=== PATIENT | male | born 1955 | race Caucasian/White ===

== ENCOUNTER 2022-10-25 10:58 | Day surgery (SDC) | payer MEDICARE, BC ==
[~2022-10-25] VITALS: Ht 198.1 cm; Wt 104.6 kg
[2022-10-25] MEDS ORDERED: normal saline 1000ml 1,000 ML IV PRN (11:20)
[2022-10-25 11:30] VITALS: BP 130/81
[2022-10-25] MEDS ORDERED: DICL-212 PO (11:30)
[2022-10-25] MEDS ORDERED: SAW450CA7 PO (11:30)
[2022-10-25] MEDS ORDERED: ASCO500W7 PO (11:30)
[2022-10-25] MEDS ORDERED: ZINC25CA PO (11:30)
[2022-10-25] MEDS ORDERED: normal saline 1000ml 1,000 ML IV SCH (14:05)
[2022-10-25] MEDS ORDERED: heparin sodium, porcine/PF 100unit/ml 5ML syringe ONE (15:04)
[2022-10-25 15:40] VITALS: BP 142/91
[2022-10-25 15:55] VITALS: BP 140/88
== END 2022-10-25 16:10 | disposition home or self-care (01) ==
LOC: SSTAY O 10:58
PROVIDERS: ATTEND Radiology Diagnostic Radiology
DX: C68.0 Malignant neoplasm of urethra (principal); Z88.0 Allergy status to penicillin; Z79.899 Other long term (current) drug therapy; Z90.6 Acquired absence of other parts of urinary tract
CPT/HCPCS: 36561; 76937; 77001; C1769; C1788; C1894; J1642; J7030